=== PATIENT | female | born 1975 | race Two or more races ===

== ENCOUNTER 2018-10-12 07:43 | Emergency (ER) | payer MEDICAID ==
[~2018-10-12] VITALS: Ht 154.9 cm; Wt 77.1 kg
[2018-10-12 07:54] VITALS: BP 117/74
== END 2018-10-12 09:04 | disposition home or self-care (01) ==
LOC: ER 07:43
DX: K64.8 Other hemorrhoids (principal)

== ENCOUNTER 2021-09-08 08:40 | Emergency (ER) | payer MEDICAID ==
[~2021-09-08] VITALS: Ht 167.6 cm; Wt 72.6 kg
[2021-09-08 09:24] VITALS: BP 114/78
[2021-09-08] MEDS ORDERED: IBUPROFEN 800 MG TAB PO ONE (09:30)
[2021-09-08] MEDS ORDERED: IBUP800T27 PO (09:59)
[2021-09-08] MEDS ORDERED: METH750T22 PO (09:59)
== END 2021-09-08 14:15 | disposition home or self-care (01) ==
LOC: ER 08:40
DX: G89.29 Other chronic pain (principal); M54.50 Low back pain, unspecified; M47.816 Spondylosis without myelopathy or radiculopathy, lumbar region
CPT/HCPCS: 72100